=== PATIENT | male | born 1965 | race Caucasian/White ===

== ENCOUNTER 2025-05-10 10:53 | Emergency (ER) | payer OTHER ==
[2025-05-10 10:58] VITALS: BP 138/97; PULSE 67; RESP 20; TEMP 97.9; BMI 29.5
[2025-05-10] MEDS: NAPROXEN 500 MG TABLET PO ONE (12:21)
[2025-05-10] MEDS ORDERED: NAPROXEN 500 MG TABLET ONE (12:21)
== END 2025-05-10 12:41 | disposition home or self-care (01) ==
LOC: JERFT 10:53
DX: M17.11 Unilateral primary osteoarthritis, right knee (principal); M25.661 Stiffness of right knee, not elsewhere classified; M25.461 Effusion, right knee
CPT/HCPCS: 73562-TC-RT-FY; 99283-25